=== PATIENT | male | born 1990 | race Caucasian/White ===

== ENCOUNTER 2020-09-23 12:17 | Emergency (ER) | payer SELFPAY ==
--- NOTE | ~2020-09-23 | XR_ITS ---
EXAMINATION: XR elbow RT min 3V DATE: 09/23/2020 12:47 INDICATION: Posterior right elbow swelling post trauma 2 weeks prior TECHNIQUE: Anteroposterior, two oblique and lateral views of the right elbow were obtained. COMPARISON: None. FINDINGS: Alignment is normal. No fracture or joint effusion. Joint spaces are normal. There is soft tissue swe lling about the forearm most prominent posterior to the olecranon. IMPRESSION: 1. Soft tissue swelling. No right elbow joint effusion or osseous abnormality. Reviewed, dictated and finalized at location A. [facility] [employer]
[2020-09-23 12:26] VITALS: BP 124/70; PULSE 75; RESP 16; TEMP 36.5; O2SAT 100
--- NOTE | 2020-09-23 12:47 | ED.GENADULT ---
HPI - General Adult General Chief complaint: Extremity Injury, Upper Stated complaint: left elbow swollen Time Seen by Provider: 09/23/20 12:47 Source: patient and RN notes reviewed Mode of arrival: ambulatory Limitations: no limitations History of Present Illness HPI narrative: 29-year-old male presents with complains of RT elbow swelling and feeling of something moving freely for the past 2 days. Raymond says he fell off skate board 2 weeks ago hitting RT elbow, did not notice injury due to wearing jacket often. No treatment. No pain. No exacerbation factors. No relieving factors. Dominant hand is the RIGHT HAND. No suspected abuse. Denies hitting head with fall. Denies loss of consciousness, dizziness, or seizure activity. Denies fever or chills. Remains active. The patient reports he have not been diagnosed with COVID-19. The patient reports he is not waiting for the results of a COVID-19 lab test. The patient reports he do not have fever, chills, weakness, or fatigue. The patient reports he do not have a new or worsening cough or shortness of breath. Denies chest pain. The patient reports he do not have any rhinorrhea, congestion, loss of taste, sore throat, nausea, vomiting, abdominal pain, and diarrhea. Tolerating po intake well. Denies recent traveling. Denies concerns for COVID-19 or exposures been home with limited outdoor exposure except for essential household needs, work, and return home. At this time, patient is not suspected of having COVID-19. Some parts of this dictation were generated by voice recognition software and may contain typographical and/or grammatical inaccuracies. Related Data Home Medications Medication Instructions Recorded Confirmed No Home Medications 09/23/20 09/23/20 Allergies Allergy/AdvReac Type Severity Reaction Status Date / Time No Known Allergies Allergy Verified 09/23/20 12:36 Review of Systems Review of Systems: Narrative: CONSTITUTIONAL: Denies fever, chills, sweats. EYES: Denies visual changes, redness, discharge. ENT: Denies rhinorrhea, congestion, sore throat, otalgia. CARDIOVASCULAR: Denies chest pain, palpitations, edema. RESPIRATORY: Denies dyspnea, wheezing, cough. GASTROINTESTINAL: Denies abdominal pain, nausea, vomiting, diarrhea. GENITOURINARY: Denies dysuria, hematuria, abnormal discharge SKIN: Denies rash or itching. MUSCULOSKELETAL: Denies acute back pain or myalgia. Complains of RT elbow swelling and feeling of something moving freely. NEUROLOGIC: Denies numbness or focal weakness. PSYCHIATRIC: Denies anxiety or depression. All other systems reviewed & are unremarkable except as noted in HPI and below. [facility] Past Medical History Medical History (Updated 09/24/20 @ 00:00 by Sukhjinder Adair) No significant past medical history Surgical History Surgical History (Updated 09/23/20 @ 19:59 by SANTIAGO Andrews) History of tympanostomy Family History Family History (Updated 09/23/20 @ 19:59 by SANTIAGO Andrews) Father Diabetes mellitus Mother Alive and well Social History Social History (Updated 09/23/20 @ 20:00 by SANTIAGO Andrews) Smoking status: Former smoker Tobacco type: cigarettes Second hand tobacco smoke exposure: No Smoking end date: 06/19/20 Alcohol intake: current Substance use: current Substance use type: marijuana Living arrangements: with family Occupation/Education: occupation Gender identity (if verbalized by the patient): Male Exam Narrative: Exam Narrative: GENERAL: This is a well-nourished, well-developed patient, in no apparent distress. Speaks in full sentences and ambulates with steady gait without dyspnea HEAD: normocephalic, atraumatic. EYES: PERRL. Sclera clear/white. Vision is grossly intact. NECK: Supple and nontender with full range of motion without discomfort. No meningeal signs. CARDIOVASCULAR: Regular rate and rhythm without murmurs, gallops, or ru
== END 2020-09-23 13:10 | disposition home or self-care (01) ==
PROVIDERS: Emergency Provider Nurse Practitioner Family; PCP Family Medicine
DX: S53.401A Unspecified sprain of right elbow, initial encounter (principal); V00.131A Fall from skateboard, initial encounter; S50.02XA Contusion of left elbow, initial encounter; Z87.891 Personal history of nicotine dependence
CPT/HCPCS: 73080; 99213; G0463